=== PATIENT | female | born 1945 | race Caucasian/White ===

== ENCOUNTER → 2024-11-15 | Outpatient (CLI) | payer OTHER, SELFPAY ==
--- NOTE | 2024-11-15 13:00 | XR_ITS ---
Examination: Screening digital mammography, bilateral Computer aided detection 3-D breast Tomosynthesis, bilateral Date and time of exam: November 15, 2024 1303 hours Compared to mammograms dating to February 16, 2015 Indication: Screening, personal history left breast cancer, strong family history, sister breast cancer Technique: Nonmagnified MLO, CC views of the breasts to been obtained, reconstructed from 3-D Tomosynthesis images. R2 computer aided detection program utilized for evaluation of suspicious masses and/or abnormal calcifications. 3-D Tomosynthesis images obtained. Findings: Scattered areas of fibroglandular density. Stable extensive scar formation left breast with breast biopsy marker and surgical clips upper left breast as well as skin retraction and thickening No interval suspicious masses Impression: BI-RADS category II: Benign Findings. Recommend 1 year follow-up mammogram. Given the strong family history and personal history breast cancer, consider baseline bilateral breast sonography follow-up
== END | disposition home or self-care (01) ==
PROVIDERS: PCP Family Medicine; Referring Provider Family Medicine; Visit Provider Family Medicine
DX: Z12.31 Encounter for screening mammogram for malignant neoplasm of breast (principal); R92.323 Mammographic fibroglandular density, bilateral breasts; Z80.3 Family history of malignant neoplasm of breast
CPT/HCPCS: 77063; 77067

== ENCOUNTER → 2024-11-24 | Outpatient (CLI) | payer OTHER, SELFPAY ==
[2024-11-24 10:38] LABS: Basophils # (Auto) 0.1 Thou/mm3 (0.0-0.2); Basophils % (Auto) 1 % (0-2.5); Eosinophils # (Auto) 0.2 Thou/mm3 (0.0-0.5); Eosinophils % (Auto) 2 % (0-10); Hematocrit 42.6 % (36.0-46.0); Hemoglobin 13.9 g/dL (12.0-16.0); Immature Granulocytes % (Auto) 0 % (0-0); Immature Granulocytes Auto 0.03 Thou/mm3 (0.00-0.00); Lymphocytes # (Auto) 2.6 Thou/mm3 (1.0-4.8); Lymphocytes % (Auto) 25 % (10-50); Mean Corpuscular HGB Conc 32.6 g/dl (31.0-37.0); Mean Corpuscular Hemoglobin 29.3 pg (25.0-35.0); Mean Corpuscular Volume 90 fL (80-100); Monocytes # (Auto) 0.9 Thou/mm3 (0.0-0.8); Monocytes % (Auto) 9 % (0-12); Neutrophils # (Auto) 6.6 Thou/mm3 (1.8-7.7); Neutrophils % (Auto) 64 % (37-80); Nucleated Red Blood Cell % 0 /100 WBC (0); Platelet Count 274 Thou/mm3 (140-440); RDW Standard Deviation 45.9 fL (36.4-46.3); Red Blood Count 4.75 Miln/mm3 (4.00-5.20); White Blood Count 10.4 Thou/mm3 (3.6-11.0)
[2024-11-24 10:47] LABS: Glucose Estimated Average 105 mg/dL (80-131); Hemoglobin A1C 5.3 % Hgb (4.8-6.0)
[2024-11-24 10:51] LABS: Sed Rate (ESR) 19 mm/hr (0-30)
[2024-11-24 10:54] LABS: T4 (Thyroxine) 11.6 mcg/dL (4.5-10.9)
[2024-11-24 10:57] LABS: Alanine Aminotransferase 11 U/L (10-49); Albumin, Serum 4.2 gm/dL (3.4-4.8); Albumin/Globulin Ratio 1.6 (1.2-2.2); Alkaline Phosphatase 115 U/L (46-116); Anion Gap 4 (7-16); Aspartate Amino Transferase 13 U/L (0-34); BUN/Creatinine Ratio 18 Ratio (12-20); Bilirubin,Total 0.4 mg/dL (0.3-1.2); Blood Urea Nitrogen 21 mg/dL (9-23); Calcium 9.2 mg/dL (8.3-10.6); Calcium (Corrected) 9.2 mg/dL (8.5-10.1); Carbon Dioxide 29.2 mMol/L (20.0-31.0); Chloride 108 mMol/L (98-107); Creatinine (Component) 1.2 mg/dL (0.6-1.3); Globulin 2.6 gm/dL (2.3-3.5); Glucose 101 mg/dL (74-106); Osmolality,Calculated 284 (275-295); Potassium 4.8 mMol/L (3.4-5.1); Sodium 141 mMol/L (136-145); Thyroid Stimulating Hormone 1.66 uIU/mL (0.55-4.78); Total Protein 6.8 gm/dL (5.7-8.2); eGFR 46 See Note
== END | disposition home or self-care (01) ==
LOC: COPL 09:21
PROVIDERS: PCP Family Medicine; Referring Provider Family Medicine; Visit Provider Family Medicine
DX: E11.65 Type 2 diabetes mellitus with hyperglycemia (principal); E78.00 Pure hypercholesterolemia, unspecified
CPT/HCPCS: 36415; 80053; 81001; 83036; 84436; 84443; 85025; 85652

== ENCOUNTER → 2024-11-25 | Outpatient (CLI) | payer OTHER, SELFPAY ==
[2024-11-25 08:32] LABS: Collection Type, Urine Clean Catch
[2024-11-25 11:03] LABS: Bilirubin,Urine Negative (Negative); Blood,Urine Negative (Negative); Clarity,Urine Clear (Clear/Hazy); Color,Urine Lt-Yellow (Lt Yel-Yel); Glucose, Urine Negative (Negative); Ketones,Urine Negative (Negative); Leukocyte Esterase,Urine Negative (Negative); Nitrite,Urine Negative (Negative); PH,Urine 5.5 (5.0-7.0); Protein,Urine Negative (Neg - Trace); RBC,Urine 2 /hpf (0-3); Specific Gravity,Urine 1.017 (1.001-1.035); Squamous Epithelial Cell,Urine 1 /hpf (0-5); Urobilinogen,Urine Negative mg/dL (0.0-1.0); WBC,Urine 1 /hpf (0-5)
== END | disposition home or self-care (01) ==
LOC: SLDO 08:23
PROVIDERS: Referring Provider Family Medicine; Visit Provider Family Medicine
DX: E11.65 Type 2 diabetes mellitus with hyperglycemia (principal); E78.00 Pure hypercholesterolemia, unspecified
CPT/HCPCS: 81001

== ENCOUNTER 2025-03-23 13:30 | Emergency (ER) | payer OTHER, SELFPAY ==
[2025-03-23 14:02] VITALS: BP 175/81; PULSE 60; RESP 18; TEMP 36.3; O2SAT 97; BMI 27.9
--- NOTE | 2025-03-23 14:02 | XR_ITS ---
Examination: Shoulder,left, 3 views Technique: Shoulder AP internal rotation, AP external rotation, Y view shoulder, 3 views Exam date and time :March 23, 2025 1430 hours INDICATIONS: Patient fell today with injury to the shoulder, shoulder pain. FINDINGS: Suspicious for impacted acute left humeral neck fracture No shoulder dislocation IMPRESSION: Recommend CT scan shoulder without contrast follow-up to confirm acute impacted humeral neck fracture
--- NOTE | 2025-03-23 14:02 | XR_ITS ---
Examination: Left elbow 3 views Technique: Elbow AP, oblique, lateral 3 views Exam date and time: March 23, 2025 1430 hours INDICATIONS: Patient fell today with into the elbow, elbow pain. FINDINGS: Severe osteopenia No fracture or dislocation IMPRESSION: No fracture or dislocation.
--- NOTE | 2025-03-23 14:03 | PD.EDUPEX ---
Upper Extremity Injury RME/HPI General Chief Complaint: Fall Stated Complaint: FALL Time Seen by Provider: 03/23/25 13:49 Source: patient and EMS Arrival date/time: 03/23/25 13:30 Mode of arrival: EMS Limitations: no limitations RME / HPI RME / HPI narrative: Patient is a 79-year-old female who is brought in by EMS. She has a history of depression, hyperlipidemia, and hypothyroidism. She states she was at his neighbor's house, she attempted to tack picker her dog, when she had a mechanical fall and struck her left upper arm. She has diffuse swelling on her shoulder with associated pain. She has no open wounds. She denies any head, neck, or back injuries. She has no elbow or distal extremity pain. She has no other acute complaints. Related Data Home Medications ?Medication ?Instructions ?Recorded ?Confirmed letrozole 2.5 mg tablet 2.5 mg PO QDAY 01/11/20 06/08/20 levothyroxine 75 mcg tablet 75 mcg PO QDAY 01/11/20 06/08/20 melatonin 5 mg tablet 5 mg PO HS PRN Insomnia 01/11/20 06/08/20 pravastatin 40 mg tablet 20 mg PO QDAY 01/11/20 06/08/20 sertraline 100 mg tablet 50 mg PO QDAY 01/11/20 06/08/20 Previous Rx's ?Medication ?Instructions ?Recorded hydrocodone 5 mg-acetaminophen 325 1 tab PO BID PRN pain #10 tabs 03/23/25 mg tablet Allergies Allergy/AdvReac Type Severity Reaction Status Date / Time adhesive tape Allergy Severe .ITICHING Verified 06/07/20 13:13 / Sulfa (Sulfonamide Allergy Severe BREATHING Verified 06/07/20 13:13 Antibiotics) PROBLEMS/ Review of Systems Review of Systems Systems Reviewed: All systems reviewed, normal except as documented ED Exam General Limitations: Present no limitations General appearance: Present alert and in distress Head Head exam: Present atraumatic Eye Eye exam: Present normal appearance, PERRL and EOMI ENT ENT exam: Present normal exam, normal oropharynx and mucous membranes moist Neck Neck exam: Present normal inspection, full ROM and trachea midline Chest Chest inspection: Present normal inspection and symmetric chest wall rise Cardiovascular Cardiovascular exam: Present regular rate, normal rhythm and normal heart sounds Abdominal Exam Abdominal exam: Present soft and normal bowel sounds Extremities Exam Extremities exam: Present other (There is diffuse edema at the proximal left shoulder. Patient is tender to palpation.) Back Exam Back exam: Present normal inspection and full ROM Neurological Exam Neurological exam: Present alert and oriented X3 Psychiatric Psychiatric exam: Present normal affect and normal mood Skin Skin exam: Present warm, dry, intact and normal color Course Quality Measures none Orders Category Date Time Status sling [Splint / Immobilizer] STAT Care 03/23/25 14:[address] shoulder LT wo con Stat Exams 03/23/25 16:35 Completed XR elbow comp LT min 3V Stat Exams 03/23/25 14:02 Completed XR shoulder LT min 2V Stat Exams 03/23/25 14:02 Completed HYDROcodone*/APAP 5/325 [[place] 5/325] Med 03/23/25 14:02 Discontinued 1 tab PO X1 ONE Vital Signs Vital signs: Vital Signs Temperature 97.3 F 03/23/25 14:02 Pulse Rate 60 03/23/25 14:02 Respiratory Rate 18 03/23/25 14:02 Blood Pressure 175/81 H 03/23/25 14:02 Pulse Oximetry (%) 97 03/23/25 14:02 Oxygen Delivery Method Room Air 03/23/25 14:02 Extremity Injury MDM Narrative MDM Narrative:: Patient is a 79-year-old female who is brought in by EMS. She has a history of depression, hyperlipidemia, and hypothyroidism. She states she was at his neighbor's house, she attempted to tack picker her dog, when she had a mechanical fall and struck her left upper arm. She has diffuse swelling on her shoulder with associated pain. She has no open wounds. She denies any head, neck, or back injuries. She has no elbow or distal extremity pain. She has no other acute complaints. On exam, patient is uncomfortable appearing but nontoxic appearing. She has no gross deformities or open wounds. She has edema and tenderness to palpation of the left proximal shoulder. Films were obtained which revealed a humeral neck fracture. Patient was placed in a sling. Pain was controlled with medication here. Patient be discharged for outpatient follow-up with Dr. Armas patient verbalized understanding agreement to plan. She return as needed for worsening emergent changes.. Patient data External records reviewed:: EMS form Clinical information provided by:: patient Social determinants that could affect healthcare access:: none Patient has the following chronic illnesses:: n/a How is presenting disease/condition affected by chronic disease/condition?: uneffected by Evaluation data The following diagnostics were reviewed and interpreted by me:: lab results and radiology exam(s) Lab and/or radiology exams considered but not ordered:: n/a Interpretation Summary: Humeral neck fracture Medications / Prescriptions Medications or Prescriptions considered but not ordered:: n/a Medication administrations:: Medication Administration History Discontinued Medications Hydrocodone Bitart/Acetaminophen (Hydrocodone/[place] 5/325 Tablet) 1 tab PO X1 ONE Stop: 03/23/25 14:03 Last Admin: 03/23/25 14:47 Dose: 1 tab Documented By: DELORIS see above Consultations Consultation(s) initiated? (list below): No Diagnosis Upper Extremity Injury Differential Diagnosis: dislocation of shoulder, fracture of humerus and fracture of clavicle Most likely diagnosis given after review of the tests above:: Shoulder fracture Admission Indicated Admission indicated?: not indicated Admission Request Was there a request for admission?: No Disposition Plan Disposition Plan: Discharge Discharge Attestation Discharge Attestation: The patient and all family members were given an opportunity to ask questions and understood the discharge instructions. Discharge instructions specifically effects, indications for sooner follow up or return to the emergency department, and the expected course of current diagnosis. Patient condition: Stable Discharge Plan Plan Patient Disposition: HOME (Self Care) Patient condition on transfer: Stable Prescriptions/Referrals Prescriptions/Med Rec: New hydrocodone-acetaminophen 5-325 mg tablet 1 tab PO BID MDD 10 PRN (Reason: pain) Qty: 10 0RF No Action pravastatin 40 mg Tablet 20 mg PO QDAY sertraline 100 mg Tablet 50 mg PO QDAY levothyroxine 75 mcg Tablet 75 mcg PO QDAY letrozole 2.5 mg Tablet 2.5 mg PO QDAY melatonin 5 mg Tablet 5 mg PO HS PRN (Reason: Insomnia) Referrals: Tariq Armas MD [Physician] - In 1 week (Left humeral neck fracture) Efra Santos MD [Primary Care Provider] - In 1 week Problem List Clinical Impression: Closed fracture of shoulder Patient/Caregiver Discharge Instructions Education Materials: ED Fracture, Shoulder Additional Instructions: - Use the provided shoulder sling. - Use Tylenol and ibuprofen as needed for comfort. - Use the provided medication for breakthrough pain. - Follow-up with orthopedics. He will need to contact them to schedule follow-up appointment. - Return at anytime for any worsening or emergent changes. Print Language: Vietnamese Stand Alone Forms: Jaqueline Award Info., Patient Portal Info Letter
[2025-03-23 14:28] VITALS: PULSE 70; RESP 16; O2SAT 97
[2025-03-23] MEDS: HYDROcodone/APAP 5/325 TABLET 1 TAB PO (14:47)
[2025-03-23 14:59] VITALS: BP 192/77; PULSE 66; RESP 16; TEMP 36.4; O2SAT 97
--- NOTE | 2025-03-23 16:35 | XR_ITS ---
Examination: CT left shoulder., without contrast. 2-D sagittal reconstructions. 2-D coronal reconstructions. 3-D reconstructions. Date and time of exam:March 23, 2025, 1656 hours. INDICATIONS: Patient fell today with a nodular shoulder, shoulder pain. CTDI: vol (mGy):10.4. DLP: (mGycm):210. Technique: Multiple 1.25 mm axial sections of the left shoulder without intravenous contrast have been obtained. 2-D sagittal and coronal reconstructions have been obtained. 3-D reconstructions have been obtained. Low dose protocols were performed. One or more of the following dose reduction techniques were used; automated exposure control, adjustment of the mA and/or KV according to patient size, use of iterative reconstruction technique. Findings: Acute impacted fracture left humeral neck Fracture extends to the greater tuberosity of the humeral head, coronal image 41, axial image 29 No disruption of the bicipital groove No shoulder dislocation Scapula clavicle is intact as well as visualized left ribs IMPRESSION: Acute impacted fracture left humeral neck This fracture extends to the greater tuberosity of the humeral head
== END 2025-03-23 19:05 | disposition home or self-care (01) ==
PROVIDERS: Emergency Provider Emergency Medicine; PCP Family Medicine
DX: S42.252A Displaced fracture of greater tuberosity of left humerus, initial encounter for closed fracture (principal); W19.XXXA Unspecified fall, initial encounter; Y93.89 Activity, other specified; Y92.019 Unspecified place in single-family (private) house as the place of occurrence of the external cause; E03.9 Hypothyroidism, unspecified; E78.5 Hyperlipidemia, unspecified; F32.A Depression, unspecified
CPT/HCPCS: 73030; 73080; 73200; 99283; A9270

== ENCOUNTER 2025-08-01 09:38 | Emergency (ER) | payer OTHER, SELFPAY ==
[2025-08-01] VITALS (7 sets, daily range): BP systolic 104–152; BP diastolic 55–76; PULSE 54–70; RESP 16–19; TEMP 36.4–36.6; O2SAT 95–99; BMI 27.8
--- NOTE | 2025-08-01 | XR_ITS ---
Examination: MRI brain without intravenous contrast. Date and time of exam: August 01, 2025, 1609 hours INDICATIONS: Worsening weakness over the last several weeks with 2 falls, enlarged ventricles with periventricular edema type appearance on the CT brain scan today Technique: Multiple axial and sagittal images of the brain obtained. Siemens high-resolution 1.5 [place] short bore scanners utilized. Sagittal sections, T1-weighted, TR 500, TE 14, are performed. Axial sections proton-density and T2-weighted have been obtained. Inversion recovery axial images, TR 9, 260, TE 111, TI 2500. Diffusion weighted images, axial sections, TR 4800, TE 128, B value 1000 Axial sections, ADC map, TR 4800, TE 128 Findings: Enlargement of the sella turcica is not present. The optic chiasm and infundibular are not remarkable. Prepontine and interpeduncular cisterns are not enlarged. There is no localized enlargement of the medulla or elia. Fourth ventricle and cerebellar tonsils appear normal in position. No subacute area of hemorrhage density is seen. Mass in the cerebellopontine angle region is not evident. Globes symmetrical. Orbital musculature including medial lateral rectus muscles do not exhibit abnormality. Diffusion-weighted images demonstrate no focus of restricted diffusion. Increased white matter signal very prominent Mass effect upon the ventricular system is not identified. Impression: Negative for acute hemorrhage mass effect or midline shift No generalized cerebral edema Findings are most consistent with severe atrophy and chronic multi-infarct dementia pattern
--- NOTE | 2025-08-01 10:15 | EKG_ITS ---
[facility] Test Date: 2025-08-01 Pat Name: PAT ATKINSON Department: Room: - Gender: Female Tie Man: : 1945 Requested By: Richard Moser Order Number: [id number] Reading MD: Richard Moser Measurements Intervals [place] Rate: 65 P: -11 [place]: 167 QRS: -40 QRSD: 90 T: 58 QT: 413 QTc: 430 Interpretive Statements SINUS RHYTHM LEFT AXIS DEVIATION [QRS AXIS < -30] PATTERN CONSISTENT WITH PULMONARY DISEASE No previous ECG available for comparison /store/S0/[id number]/ecg/[id number].pdf
--- NOTE | 2025-08-01 10:16 | PD.EDRME ---
Rapid Medical Screening Exam [facility] Arrival date/time: 08/01/25 09:38 79-year-old female with a history of hypothyroidism, hypertension presents to the emergency room with a chief complaint of 2 ground-level falls that occurred this morning. Patient states she is having frequent falls and states her legs give out. Patient states she lives alone at home. I have greeted and performed a focused initial assessment of this patient. A comprehensive ED assessment and evaluation of the patient, analysis of all test results, and completion of the medical decision making process will be conducted by additional ED providers. Chief Complaint: Weakness Vital signs: Vital Signs Temperature 97.8 F 08/01/25 10:11 Pulse Rate 64 08/01/25 10:11 Respiratory Rate 18 08/01/25 10:11 Blood Pressure 127/72 08/01/25 10:11 Pulse Oximetry (%) 98 08/01/25 10:11 Oxygen Delivery Method Room Air 08/01/25 10:11 Vital signs reviewed by provider: Yes Exam: GCS 15 alert and oriented x 3 Clear bilateral lung sounds Strong and regular rhythm Clinical Impression: Anemia/orthostatic hypotension/dizziness
--- NOTE | 2025-08-01 10:18 | XR_ITS ---
Examination: CT brain head without contrast. 2-D sagittal coronal reconstructions Date and time of exam: August 01, 2025, 1039 hours,. INDICATIONS: Frequent falls this morning with injury to the head, head pain CTDI: vol (mGy): 49.1 DLP: (mGycm): 1033 Technique: Multiple CT axial sections of the brain have been obtained, 5 mm slice thickness. Contrast has not been administered. 2-D sagittal, coronal reconstructions have been obtained Low dose protocols were performed. One or more of the following dose reduction techniques were used; automated exposure control, adjustment of the mA and/or KV according to patient size, use of iterative reconstruction technique. Findings: Mild to moderate ventricular enlargement. Intra-axial or extra-axial hemorrhage density is not seen. No mass effect or midline shift Basal cisterns are not remarkable. Fourth ventricle is midline. Cranial vault intact. Impression: Negative for acute hemorrhage Mild to moderate ventricular enlargement with possible periventricular edema, consider brain MRI follow-up pre and postcontrast
[2025-08-01 10:35] LABS: Basophils # (Auto) 0.1 Thou/mm3 (0.0-0.2); Basophils % (Auto) 1 % (0-2.5); Eosinophils # (Auto) 0.1 Thou/mm3 (0.0-0.5); Eosinophils % (Auto) 1 % (0-10); Hematocrit 41.5 % (36.0-46.0); Hemoglobin 13.5 g/dL (12.0-16.0); Immature Granulocytes Auto 0.03 Thou/mm3 (0.00-0.00); Lymphocytes # (Auto) 1.6 Thou/mm3 (1.0-4.8); Lymphocytes % (Auto) 13 % (10-50); Mean Corpuscular HGB Conc 32.5 g/dl (31.0-37.0); Mean Corpuscular Hemoglobin 29.5 pg (25.0-35.0); Mean Corpuscular Volume 91 fL (80-100); Monocytes # (Auto) 0.9 Thou/mm3 (0.0-0.8); Monocytes % (Auto) 8 % (0-12); Neutrophils # (Auto) 9.5 Thou/mm3 (1.8-7.7); Neutrophils % (Auto) 78 % (37-80); Nucleated Red Blood Cell # 0.00 Thou/mm3 (0.00-0.00); Nucleated Red Blood Cell % 0 /100 WBC (0); Platelet Count 288 Thou/mm3 (140-440); RDW Standard Deviation 45.0 fL (36.4-46.3); Red Blood Count 4.57 Miln/mm3 (4.00-5.20); White Blood Count 12.2 Thou/mm3 (3.6-11.0)
[2025-08-01 10:48] LABS: INR 1.0 (0.9-1.3); Partial Thromboplastin Time 27.1 Seconds (22.0-36.0); Prothrombin Time 10.4 Seconds (9.0-12.2)
[2025-08-01 10:53] LABS: B-Type Natriuretic Peptide 159 pg/mL (0-100)
[2025-08-01 10:54] LABS: Alanine Aminotransferase 16 U/L (10-49); Albumin, Serum 4.2 gm/dL (3.4-4.8); Albumin/Globulin Ratio 1.4 (1.2-2.2); Alkaline Phosphatase 148 U/L (46-116); Anion Gap 6 (7-16); Aspartate Amino Transferase 18 U/L (0-34); BUN/Creatinine Ratio 10 Ratio (12-20); Bilirubin,Total 0.4 mg/dL (0.3-1.2); Blood Urea Nitrogen 11 mg/dL (9-23); Calcium 9.7 mg/dL (8.3-10.6); Calcium (Corrected) 9.7 mg/dL (8.5-10.1); Carbon Dioxide 23.8 mMol/L (20.0-31.0); Chloride 106 mMol/L (98-107); Creatinine (Component) 1.1 mg/dL (0.6-1.3); Estimated Creatinine Clearance 40.1 mL/min (>60); Globulin 3.0 gm/dL (2.3-3.5); Glucose 108 mg/dL (74-106); Osmolality,Calculated 272 (275-295); Potassium 4.4 mMol/L (3.4-5.1); Sodium 136 mMol/L (136-145); Total Protein 7.2 gm/dL (5.7-8.2); Troponin I 0.025 ng/mL (0.0-0.045); eGFR 51 See Note
--- NOTE | 2025-08-01 13:16 | PD.EDADULT ---
ED General RME/HPI General Chief complaint: Weakness Stated complaint: WEAKNESS Time Seen by Provider: 08/01/25 10:55 Arrival date/time: 08/01/25 09:38 CC: Recurrent falls HPI patient has a progressive worsening and generalized weakness over the past several weeks. Resulting in 2 falls in the last 24 hours and 4 falls in the last 48 hours. Patient is awake alert oriented daughter at bedside. Patient states she fell back in March had physical therapy since stopping that though has had continued weakness. The patient lives in an independent adult/nursing home. At the time of the exam she required assistance to stand up from the wheelchair to the bed. The patient had minimal strength in her legs but was able to minimally bear weight and pivot onto the bed. Patient is awake alert oriented x 2. The daughter reports no urinary incontinence unusual or altered behavior fever. Patient denies chest pain shortness of breath or difficulty breathing. RME / HPI RME / HPI narrative: 08/01/25 09:38 79-year-old female with a history of hypothyroidism, hypertension presents to the emergency room with a chief complaint of 2 ground-level falls that occurred this morning. Patient states she is having frequent falls and states her legs give out. Patient states she lives alone at home. I have greeted and performed a focused initial assessment of this patient. A comprehensive ED assessment and evaluation of the patient, analysis of all test results, and completion of the medical decision making process will be conducted by additional ED providers. Exam: GCS 15 alert and oriented x 3 Clear bilateral lung sounds Strong and regular rhythm Impression: Anemia/orthostatic hypotension/dizziness Related Data Home Medications ?Medication ?Instructions ?Recorded ?Confirmed letrozole 2.5 mg tablet 2.5 mg PO QDAY 01/11/20 06/08/20 levothyroxine 75 mcg tablet 75 mcg PO QDAY 01/11/20 06/08/20 melatonin 5 mg tablet 5 mg PO HS PRN Insomnia 01/11/20 06/08/20 pravastatin 40 mg tablet 20 mg PO QDAY 01/11/20 06/08/20 sertraline 100 mg tablet 50 mg PO QDAY 01/11/20 06/08/20 Previous Rx's ?Medication ?Instructions ?Recorded hydrocodone 5 mg-acetaminophen 325 1 tab PO BID PRN pain #10 tabs 03/23/ mg tablet Allergies Allergy/AdvReac Type Severity Reaction Status Date / Time adhesive tape Allergy Severe .ITICHING Verified 08/01/25 09:47 / Sulfa (Sulfonamide Allergy Severe BREATHING Verified 08/01/25 09:47 Antibiotics) PROBLEMS/ Review of Systems Review of Systems Narrative Review of Systems: GEN: No fever, no chills, no weight loss EYES: No discharge, no visual changes, no pain HEENT: No ear pain, no congestion, no sore throat PULM: No shortness of breath, no cough, no congestion CV: No chest pain, no dyspnea on exertion, no palpitations GI: No nausea, no vomiting, no diarrhea, no pain, no constipation : No frequency, no urgency, no dysuria MUSC/SKEL: No joint pain, no back pain SKIN: No rash PSYCH: No hallucinations, no depression HEME/LYMPH: No easy bleeding or bruising tendencies NEURO: No weakness, no headache Past Medical History Past Medical History NEUROLOGIC: Negative Neurological Disorders CARDIAC: Positive Cardiac Disorders, Cardiac Arrhythmia and Hypercholesterolemia; Negative Congestive Heart Failure RESPIRATORY: Negative Chronic Obstructive Pulmonary Disease (COPD) GASTROINTESTINAL: Positive Gastrointestinal Disorders and Gastroesophageal Reflux Disease; Negative Hepatitis GENITOURINARY: Negative Genitourinary Disorders or Renal Disease REPRODUCTIVE: Positive Breast Cancer and Previous Pregnancies () MUSCULOSKELETAL: Positive Musculoskeletal Disorders and Arthritis ENT: Negative Cataracts ENDOCRINE: Positive Endocrine Disorders and Hypothyroidism; Negative Diabetes Mellitus Type 1 or Diabetes Mellitus Type 2 HEMATOLOGIC: Negative Blood Disorders PSYCHO/SOCIAL: Positive Depression OTHER HISTORY: Positive Hospitalization, Chemotherapy (2010), Radiation Therapy (2010), Chicken Pox, Measles, Mumps and Breast Cancer; Negative Autoimmune Disease, Shingles, Blood Transfusions, Anesthesia Reactions, MRSA, VRSA or Vancomycin-Resistant Enterococci Family History FAMILY HISTORY: Positive Family Respiratory Disorders (MAYBE SISTER), Family Cancer (SISTER RECTUM, LIP, UTERUS, BREAST, BROTHER SKIN CA) and Family Surgery; Negative Family Psychiatric Problems, Family Cardiac Disorders (SISTER BYPASS), Family Gastrointestinal Problems or Family Anesthesia Reaction Surgical History SURGICAL: Positive Lumpectomy, Tubal Ligation and Section (X2); Negative Cardiac Surgery, Endocrine Surgery, Thyroidectomy, Ear Surgery or Abdominal Surgery Social History SMOKING STATUS: Current every day smoker ED Exam Narrative Physical exam: [General: Not in any acute distress Head normocephalic no step-offs hematoma induration ulceration or depressions. HEENT: Eyes pupils are PERRLA EOMs are intact mouth pink moist membranes uvula is midline swallow symmetrical phonation is normal. Within acceptable limits Neck is supple nontender Chest equal chest rise nontender to palpation Respiratory: Clear to auscultation no wheezes crackles or rubs CV: Rate rhythm is regular no murmurs rubs or clicks Abdomen is soft nontender no masses positive bowel sounds all 4 quadrants Back: No CVA tenderness no spinous process tenderness from cervical spine thoracic and lumbar spine Skin: Intact no petechiae rash induration ulceration or crepitus Extremities: Moving all extremity against resistance cap refill less than 2 seconds neurosensory intact. No lower extremity edema. Neuro: Awake alert oriented x2, person and place, Glascow coma 15 no focal deficits] cranial nerves II through XII are grossly intact. Lower extremity weakness 2-3/5. Course Quality Measures none Orders Category Date Time Status Consult Medical Terminologist NOW Care 08/01/25 19:59 Completed EKG (ED ONLY) *Do not use* NOW Care 08/01/25 10:15 Completed MRI Screening NOW Care 08/01/25 13:07 Completed Referral Physical Therapy Stat Cons 08/01/25 22:[address] head/brain wo con Stat Exams 08/01/25 10:18 Completed EKG (ED Only) Stat Exams 08/01/25 10:15 Draft MR head/brain wo con Stat Exams 08/01/25 Completed B-Type Natriuretic Peptide Stat Lab 08/01/25 10:26 Completed CBC Stat Lab 08/01/25 10:26 Completed Comprehensive Metabolic Panel Stat Lab 08/01/25 10:26 Completed Partial Thromboplastin Time Stat Lab 08/01/25 10:26 Completed Prothrombin Time with INR Stat Lab 08/01/25 10:26 Completed Troponin I Stat Lab 08/01/25 10:26 Completed Urinalysis, C/S if Indicated Stat Lab 08/01/25 14:56 Completed Ibuprofen Tab [Motrin Tab] Med 08/01/25 18:07 Discontinued 400 mg PO X1 ONE Ibuprofen Tab [Motrin Tab] Med 08/02/25 10:23 Discontinued 600 mg PO X1 ONE Late Tray Request Routine Oth 08/02/25 08:44 Active Vital Signs Vital signs: Vital Signs Temperature 97.8 F 08/01/25 10:11 Pulse Rate 64 08/01/25 10:11 Respiratory Rate 18 08/01/25 10:11 Blood Pressure 127/72 08/01/25 10:11 Pulse Oximetry (%) 98 08/01/25 10:11 Oxygen Delivery Method Room Air 08/01/25 10:11 Discharge Plan Plan Patient Disposition: HOME (Self Care) Patient condition on transfer: Stable Prescriptions/Referrals Prescriptions/Med Rec: No Action pravastatin 40 mg Tablet 20 mg PO QDAY sertraline 100 mg Tablet 50 mg PO QDAY levothyroxine 75 mcg Tablet 75 mcg PO QDAY letrozole 2.5 mg Tablet 2.5 mg PO QDAY melatonin 5 mg Tablet 5 mg PO HS PRN (Reason: Insomnia) hydrocodone-acetaminophen 5-325 mg tablet 1 tab PO BID MDD 10 PRN (Reason: pain) Qty: 10 0RF Referrals: Efra Santos MD [Primary Care Provider, Family Practice] - In 1 week Problem List Clinical Impression: Hip strain Patient/Caregiver Discharge Instructions Education Materials: ED Hip Strain Print Language: Kyrgyz Stand Alone Forms: Jaqueline Award Info., Patient Portal Info Letter MDM Clinical Information Provided by: patient and family Medical Records reviewed [facility] Meds/Rx considered, not ordered None Labs/Rad/Tests considered, not ordered None Chronic Illness/Social Conditions which may negatively complicate care or outcome(s)-explain: None or not applicable EKG Interpretation EKG #1: EKG Interpretation: EKG performed at 1019 shows a ventricular rate of 65 [place] interval 164 QRS of 90 QTc of 424 sinus rhythm left axis deviation. Labs Labs: interpreted by pr Lab(s) Interpretation(s): CBC shows a mild leukocytosis of 12.2 no anemia thrombocytopenia Coags within excepted limits CMP shows no significant electrolyte imbalances renal impairment no transaminitis or T. bili elevation. BNP at 159 troponin at 0.025. Imaging Imaging interpretation: interpreted by pr Imaging Interpretation(s): CT of the head shows mildly enlarged ventricles consider periventricular edema. No other acute finding Medication Administration(s) Medication Administration History Discontinued Medications Ibuprofen (Ibuprofen Tab 400 Mg Tablet) 400 mg PO X1 ONE Stop: 08/01/25 18:08 Last Admin: 08/01/25 18:12 Dose: 400 mg Documented By: KEESHA Ibuprofen (Ibuprofen Tab 600 Mg Tablet) 600 mg PO X1 ONE Stop: 08/02/25 10:24 Last Admin: 08/02/25 11:09 Dose: 600 mg Documented By: SWAPNA
--- NOTE | 2025-08-01 13:32 | PC.NURSE ---
PT IN TODAY FOR INABILITY TO WALK. DAUGHTER AT BEDSIDE, STATES THAT PT HAS HAD MORE FREQUENT FALLS RECENTLY SINCE DARLIN. DAUGHTER STATES THAT PT HAS HAD INCONTINENT SPELLS PRIOR AND RECENTLY HAS HAD THE INABILITY TO VOID. PT IS A/O X4. PT SEEN BY PROVIDER AND WILL FOLLOW THROUGH WITH ORDERS.
[2025-08-01 15:01] LABS: Collection Type, Urine Clean Catch
[2025-08-01 15:12] LABS: Bilirubin,Urine Negative (Negative); Blood,Urine Negative (Negative); Budding Yeast,Urine Present; Clarity,Urine Clear (Clear/Hazy); Color,Urine Lt-Yellow (Lt Yel-Yel); Culture Indicated,Urine Not Indicated; Glucose, Urine Negative (Negative); Ketones,Urine Trace (Negative); Leukocyte Esterase,Urine Positive (Negative); Nitrite,Urine Negative (Negative); PH,Urine 5.5 (5.0-7.0); Protein,Urine Negative (Neg - Trace); RBC,Urine 2 /hpf (0-3); Specific Gravity,Urine 1.015 (1.001-1.035); Squamous Epithelial Cell,Urine 3 /hpf (0-5); Urobilinogen,Urine Negative mg/dL (0.0-1.0); WBC,Urine 2 /hpf (0-5)
--- NOTE | 2025-08-01 16:08 | PC.NURSE ---
PT TAKEN DOWN TO MRI VIA W/C
--- NOTE | 2025-08-01 17:16 | PC.NURSE ---
PT RETURNED FROM MRI.
[2025-08-01] MEDS: IBUPROFEN TAB 400 MG TABLET PO (18:12)
--- NOTE | 2025-08-01 23:01 | PD.EDADDENDU ---
Emergency Room Addendum <Sirisha Corona - Last Filed: 08/01/25 23:01> Addendum Narrative: 2300: Care assumed from Andres Hernandez NP. Past medical, surgical, social and family history reviewed. Vitals and home medications reviewed. Results and treatment plan discussed. I will assume the care of the patient at this time and will follow the patient. Please refer to the emergency department record for history and examination from initial visit. <Tony Rizo DO - Last Filed: 08/02/25 04:27> Addendum Narrative: 2300: Care assumed from Andres Hernandez NP. Past medical, surgical, social and family history reviewed. Vitals and home medications reviewed. Results and treatment plan discussed. I will assume the care of the patient at this time and will follow the patient. Please refer to the emergency department record for history and examination from initial visit. As of 4:26 AM at the time of this dictation, this patient has had no issues since being signed out to me at approximately 11 PM last night. Patient is medically clear and is awaiting social services director and physical therapy evaluation for placement. Case will be signed out to Dr. Monson.
[2025-08-02 02:33] VITALS: BP 139/61; PULSE 63; RESP 18; TEMP 36.5; O2SAT 97
[2025-08-02 04:35] VITALS: BP 126/60; PULSE 65; RESP 16; TEMP 36.6; O2SAT 95
[2025-08-02 06:30] VITALS: BP 143/54; PULSE 63; RESP 18; TEMP 36.6; O2SAT 93
--- NOTE | 2025-08-02 07:19 | PC.SS ---
Addendum entered by Chante Castanon 08/02/25 13:47: SS follow up note; SS was contacted by Dayana from [facility] and she informed SS they are able to provide transportation for 1500. SS also upated patients daughter as well as patients nurse. Addendum entered by Chante Castanon 08/02/25 13:39: SS follow up note: SS was contacted by Eloise from [facility] informing Lillian VILAdy that authorization was approved and would be sending auth to [facility]. SS also contacted Dayana and informed her as well as asked if they are able to provide transportation for patient. Dayana reported she would need to check their schedule and would contact SS back. SS also contacted patient's daughter, Carolina and updated her in regards to auth approval and informed her that SS would contact her with ETA. Addendum entered by Chante Castanon 08/02/25 12:28: SS follow up note; Chante VILA Contacted Patient's daughterCarolina to inform her that PT recommended SNF. Carolina would like patient to discharge to [facility]. SS contacted Dayana from [facility] and they are able to accept patient. SS sent authorization to [employer]. Auth is pending at the time. SS contacted Eloise from [facility] and left VM with [facility] contact number. Addendum entered by Chante Castanon 08/02/25 07:57: SS follow up note; SS contacted patient's daughterCarolina in regards to patient. Carolina reported she would like PT to evaluate patient before making a decision. SS informed her that once PT evaluates patient SS would be contacting her. Original Note: Patient is pending PT evaluation, Patient will need authorization from [facility] to discharge to SNF. SS will submit SNF inquiry through [employer] platform.
[2025-08-02 09:15] VITALS: BMI 13.0
--- NOTE | 2025-08-02 10:09 | PD.EDADDENDU ---
Emergency Room Addendum Addendum Narrative: 0600: Care assumed from Dr. Rizo, the previous shift emergency physician. Past medical, surgical, social and family history reviewed. Vitals and home medications reviewed. I will assume the care of the patient at this time, pending physical therapy evaluation and social sciences department chair consultation for placement to SNF. Please refer to the emergency department record for history and examination from initial visit.?The following addendum documentation note is intended to reflect any pending information, findings, or radiology results not included in the patient?s initial chart. The patient has been evaluated by physical therapist who recommends short-term SNF placement with rehab. Patient has been accepted at [facility] and are pending insurance authorization. 1500: [facility] team here to transport the patient to SNF.
[2025-08-02] MEDS: IBUPROFEN TAB 600 MG TABLET PO (11:09)
--- NOTE | 2025-08-02 11:09 | PC.PT ---
PT eval completed. Pls see PT eval notes. Patient will benefit for short term rehab.
--- NOTE | 2025-08-02 14:45 | PC.NURSE ---
[facility] called and spoke with receiving RN Becky to give nurse to nurse report.
[2025-08-02 14:49] VITALS: BP 149/72; PULSE 65; RESP 16; TEMP 36.5; O2SAT 98
--- NOTE | 2025-08-02 15:05 | PC.NURSE ---
[facility] staff on site to transport the patient to the facility. Pt's daughter is at bedside. Last set of VSS, GCS 15, alert and oriented.
== END 2025-08-02 15:30 | disposition home or self-care (01) ==
PROVIDERS: Nurse Practitioner Family; Emergency Provider Family Medicine; PCP Family Medicine
DX: S76.019A Strain of muscle, fascia and tendon of unspecified hip, initial encounter (principal); S09.90XA Unspecified injury of head, initial encounter; R29.6 Repeated falls; R94.31 Abnormal electrocardiogram [ECG] [EKG]; I10 Essential (primary) hypertension; F17.210 Nicotine dependence, cigarettes, uncomplicated; W18.30XA Fall on same level, unspecified, initial encounter; Z60.2 Problems related to living alone
CPT/HCPCS: 36415; 70450; 70551; 80053; 81001; 83880; 84484; 85025; 85610; 85730; 93005; 99284; A9270